=== PATIENT | female | born 1990 | race Caucasian/White ===

== ENCOUNTER 2016-09-26 13:10 | Outpatient (CLI) | payer MEDICAID ==
[~2016-09-26] VITALS: Ht 165.1 cm; Wt 82.0 kg
[~2016-09-26 13:10] MED LIST: CALC600T5 PO; PREN1TAB49
[2016-09-26 13:24] VITALS: BP 114/77; PULSE 89; RESP 20; Ht 165.1 cm; Wt 82.0 kg
[2016-09-26 13:48] LABS: ADD UMIC YES; URINE BILIRUBIN (Dip) NEGATIVE (NEGATIVE); URINE BLOOD (Dip) NEGATIVE (NEGATIVE); URINE COLOR LT. YELLOW (YELLOW); URINE GLUCOSE (Dip) NEGATIVE (NEGATIVE); URINE KETONES (Dip) NEGATIVE (NEGATIVE); URINE LEUKOCYTE ESTERASE (Dip) 1+ (NEGATIVE); URINE NITRITE (Dip) NEGATIVE (NEGATIVE); URINE TOTAL PROTEIN (Dip) NEGATIVE (NEGATIVE); URINE UROBILINOGEN (Dip) 0.2 E.U./dL (0.1-1.0)
--- NOTE | 2016-09-26 13:59 | RADRPT ---
PROCEDURE: OB ultrasound CLINICAL INDICATION: labor TECHNIQUE: Multiple transverse and longitudinal OB images of the pelvis were obtained. The images were reviewed on a high-resolution PACS workstation. COMPARISON: None FINDINGS: A single live intrauterine is seen. The presentation is vertex. The placenta is grade II and posterior in location. No evidence of placenta abruption or previa is seen. The heart rate is 132 beats per minute. The amniotic fluid index is 18.1 cm. The cervix is closed and the cervix length is 3 cm. movement 2 tone 2 breathing 2 Amniotic fluid 2 IMPRESSION: Biophysical profile of 03/30. RPTAT: HPNM Physician Mike Date Time Electronically viewed and signed by Physician Mike on 09/26/2016 13:58 /
[2016-09-26 14:24] LABS: BACTERIA,URINE FEW; URINE RBCS 0-2 /HPF (0)
[2016-09-26] MEDS ORDERED: TERBUTALINE 1 MG/ML INJ SC ONE (14:30)
[2016-09-26] MEDS ORDERED: CEFTRIAXONE 2 GM/50 ML (PMX) 50 ML IVPB ONE (14:30)
[2016-09-26] MEDS ORDERED: LACTATED RINGER'S 1,000 ML IV SCH (14:30)
--- NOTE | 2016-09-26 15:34 | TRIAGE ---
OB Triage Datetime Report Generated by CPN: 09/26/2016 15:34 Datetime: 09/26/2016 15:30 Maternal Assessment Level of Consciousness: Fully Conscious DTR's/Clonus: DTRs 2+ Headache: Denies Blurred Vision: No RUQ Epigastric Pain: Denies Facial Edema: None Labor Evaluation Frequency: PT DENIES Pattern: Normal: <= 5 Contractions in 10 Minutes Resting Tone [place]: Relaxed Heart Rate FHR Baseline Rate: 135 Monitor Mode: External US FHR Baseline Changes: No Baseline Change Variability: Moderate 6-25 bpm Accelerations: 15X15 Decelerations: None Category: Category I Pain Assessment Pain Scale: 0 Pain Presence: None/Denies Pain Goal: 3 Vaginal Exam Membrane Status: Intact Datetime: 09/26/2016 14:51 Labor Evaluation Frequency: 6-8 Monitor Mode: External Duration (sec)2399: 50 Quality: Moderate Pattern: Normal: <= 5 Contractions in 10 Minutes Resting Tone [place]: Relaxed Heart Rate FHR Baseline Rate: 135 Monitor Mode: External US FHR Baseline Changes: No Baseline Change Variability: Moderate 6-25 bpm Accelerations: 15X15 Decelerations: None Category: Category I Pain Assessment Pain Scale: 2 Pain Presence: Intermittent Pain Type: Pressure Pain Location: Abdomen Pain Goal: 3 Datetime: 09/26/2016 14:30 Maternal Assessment Level of Consciousness: Fully Conscious DTR's/Clonus: DTRs 2+ Headache: Denies Blurred Vision: No Nausea/Vomiting: Denies RUQ Epigastric Pain: Denies Facial Edema: None Labor Evaluation Frequency: 2-12 Monitor Mode: External Duration (sec)2399: 40-50 Quality: Mild Pattern: Normal: <= 5 Contractions in 10 Minutes Resting Tone [place]: Relaxed Heart Rate FHR Baseline Rate: 150 Monitor Mode: External US FHR Baseline Changes: No Baseline Change Variability: Moderate 6-25 bpm Accelerations: 15X15 Decelerations: None Category: Category I Pain Assessment Pain Scale: 3 Pain Presence: Intermittent Pain Type: Pressure Pain Location: Abdomen Pain Goal: 3 Vaginal Exam Membrane Status: Intact Datetime: 09/26/2016 13:27 Time of Arrival: 09/26/2016 13:05 EGA: 33.6 Arrived By: Ambulatory Arrived From: Home Chief Complaint: RIGHT LOWER ABD PRESSURE AND DECREASED MOVEMENT Movement: Decreased Contractions: Irregular Rupture of Membranes: Denies Vaginal Bleeding: None Vaginal Discharge: Denies Recent Sexual Intercouse: Denies Abdominal Trauma: Not Applicable Patient Complaints: Contractions; Other Time Provider Notified: 09/26/2016 13:15 Provider Notified: DR JONES Initial Plan: EFM,CALL DR JONES Datetime: 09/26/2016 13:26 Maternal Assessment Level of Consciousness: Fully Conscious DTR's/Clonus: DTRs 2+; No Clonus Headache: Denies Blurred Vision: No Respiratory Effort: Unlabored; Regular Rhythm; Equal Expansion Breath Sounds, Left: Clear and Equal Breath Sounds, Right: Clear and Equal Nausea/Vomiting: Denies RUQ Epigastric Pain: Denies Facial Edema: None Temperature Route: Axillary Fall Risk Assessment History of Falling: (0) No Secondary Diagnosis: (0) No Ambulatory Aid: (0) Bedrest/Nurse Assist IV Therapy: (0) No Gait: (0) Normal/Bedrest/Immobile Mental Status: (0) Oriented to Own Ability Fall Score: 0 Fall Risk Score Definition: No Risk: No action required Datetime: 09/26/2016 13:15 Maternal Assessment Level of Consciousness: Fully Conscious DTR's/Clonus: DTRs 2+ Headache: Denies Blurred Vision: No Nausea/Vomiting: Denies RUQ Epigastric Pain: Denies Facial Edema: None Labor Evaluation Frequency: IRREG Monitor Mode: External Duration (sec)2399: 50 Quality: Mild Pattern: Normal: <= 5 Contractions in 10 Minutes Resting Tone [place]: Relaxed Heart Rate FHR Baseline Rate: 145 Monitor Mode: External US FHR Baseline Changes: No Baseline Change Variability: Moderate 6-25 bpm Accelerations: 15X15 Decelerations: None Category: Category I Pain Assessment Pain Scale: 5 Pain Presence: Intermittent Pain Type: Pressure Pain Location: Abdomen Pain Goal: 4 Vaginal Exam Membrane Status: Intact
== END 2016-09-26 15:45 | disposition home or self-care (01) ==
LOC: L-D 13:10 → OBT 13:10
PROVIDERS: ATTEND Obstetrics & Gynecology
DX: O60.03 Preterm labor without delivery, third trimester (principal); Z3A.33 33 weeks gestation of pregnancy
CPT/HCPCS: 36415; 76817; 76818; 81001; 96365; 96372; J0696; J3105; J7120; Z7500; 81003; G0463

== ENCOUNTER 2016-10-30 08:38 | Outpatient (CLI) | END 2016-10-30 11:35 | disposition home or self-care (01) | DX: O36.8130 Decreased fetal movements, third trimester, not applicable or unspecified (principal); O14.93 Unspecified pre-eclampsia, third trimester; Z3A.38 38 weeks gestation of pregnancy | CPT/HCPCS: 36415; 76815; 76818; 80053; 81001; 84560; 85025; Z7500 ==

== ENCOUNTER 2016-11-01 11:28 | Inpatient (IN) | payer OTHER ==
[~2016-11-01] VITALS: Ht 165.1 cm; Wt 87.0 kg
[2016-11-01 11:31] VITALS: Ht 165.1 cm; Wt 87.0 kg
[2016-11-01 11:52] VITALS: BP 139/72; PULSE 77; RESP 18
--- NOTE | 2016-11-01 12:43 | RADRPT ---
PROCEDURE: OB ultrasound for Biophysical Profile. CLINICAL INDICATION: induced hypertension. TECHNIQUE: Multiple sonographic images of the gravid uterus were obtained. COMPARISON: 10/30/2016. FINDINGS: There is a single live intrauterine in cephalic presentation with heart motion of 12 2 beats per minute. SYMONE is 24.78 cm, which is within normal limits. Biophysical profile is as foll ows: Movement: 2 Tone:2 Breathin Fluid:2 IMPRESSION: Normal biophysical profile. RPTAT: QQ .Josephine Myers MD, MD Date Time Electronically viewed and signed by .Josephine Myers MD, on 11/01/2016 12:42 .T/
[2016-11-01] MEDS ORDERED: LIDOCAINE 1% (MPF) 30 ML INJ INJ PRN (14:00)
[2016-11-01] MEDS ORDERED: OXYTOCIN 30 UNITS/LR 500 ML IV SCH ×2 (14:00)
[2016-11-01] MEDS ORDERED: OXYTOCIN 30 UNITS/LR 500 ML IV PRN (14:00)
[2016-11-01] MEDS ORDERED: METHYLERGONOVINE 0.2 MG INJ IM PRN (14:00)
[2016-11-01] MEDS ORDERED: MISOPROSTOL 200 MCG TAB PR PRN (14:00)
[2016-11-01] MEDS ORDERED: CARBOPROST 250 MCG INJ IM PRN (14:00)
[2016-11-01] MEDS ORDERED: BUTORPHANOL 2 MG INJ IV PRN (14:00)
[2016-11-01] MEDS ORDERED: DINOPROSTONE 10 MG VAG SUPP VAG ONE (14:00)
[2016-11-01] MEDS ORDERED: LACTATED RINGER'S 1,000 ML IV PRN (14:00)
[2016-11-01] MEDS ORDERED: IBUPROFEN 600 MG TAB PO PRN (14:00)
--- NOTE | 2016-11-01 14:01 | TRIAGE ---
OB Triage Datetime Report Generated by CPN: 11/01/2016 14:01 Datetime: 11/01/2016 13:50 Labor Evaluation Frequency: 2-6 Monitor Mode: External Duration (sec)2399: 40-80 Quality: Mild Pattern: Normal: <= 5 Contractions in 10 Minutes Resting Tone [place]: Relaxed FHR Baseline Changes: No Baseline Change Variability: Moderate 6-25 bpm Comments: UNABLE TO ASSESS Datetime: 11/01/2016 13:00 Labor Evaluation Frequency: 2-5 Monitor Mode: External Duration (sec)2399: 40-70 Quality: Mild Pattern: Normal: <= 5 Contractions in 10 Minutes Resting Tone [place]: Relaxed FHR Baseline Changes: No Baseline Change Comments: UNABLE TO ASSESS Datetime: 11/01/2016 12:37 Vaginal Exam Dilatation (cms): 0.5 Effacement (%): 0 Station: -3 Exam By: CKUNIYOSHI Vaginal Bleeding: None Cervix, Consistency: Soft Cervix, Position: Posterior Lie 'A': Unable to Assess Datetime: 11/01/2016 12:35 Comments: BEDSIDE US COMPLETED Datetime: 11/01/2016 12:07 Labor Evaluation Frequency: 2-5 Monitor Mode: External Duration (sec)2399: 40-70 Quality: Mild Pattern: Normal: <= 5 Contractions in 10 Minutes Resting Tone [place]: Relaxed Heart Rate FHR Baseline Rate: 125 Monitor Mode: External US FHR Baseline Changes: No Baseline Change Variability: Moderate 6-25 bpm Accelerations: 15X15 Datetime: 11/01/2016 11:56 Time of Arrival: 11/01/2016 11:25 EGA: 39.0 Arrived By: Ambulatory Arrived From: Home Chief Complaint: ORDERS TO RETURN FOR FOLLOW UP NST/BPP (PT SEEN ON 10/30/16, TO R/O [facility]) Movement: Present Contractions: Occasional Rupture of Membranes: Denies Vaginal Bleeding: None Vaginal Discharge: Present Recent Sexual Intercouse: Denies Abdominal Trauma: Not Applicable Patient Complaints: Contractions Additional Patient Complaints: CONTRACTIONS, MUCUS DISCHARGE FROM 10/30, CONSTANT BURNING SENSATION IN LOWER ABDOMEN Time Provider Notified: 11/01/2016 12:58 Provider Notified: [facility] Initial Plan: EFM x2, BPP, SVE Datetime: 11/01/2016 11:38 Stage of : OB Triage Assessment Type: Triage Maternal Assessment Level of Consciousness: Fully Conscious Headache: Denies Blurred Vision: No Respiratory Effort: Unlabored; Regular Rhythm; Equal Expansion Breath Sounds, Left: Clear and Equal Breath Sounds, Right: Clear and Equal Nausea/Vomiting: Denies RUQ Epigastric Pain: Denies Lower Extremities Edema: Bilateral Lower Extremities Degree: 1+ Upper Extremities Edema: Bilateral Upper Extremities Degree: 1+ Facial Edema: 1+ Temperature Route: Oral Fall Risk Assessment History of Falling: (0) No Secondary Diagnosis: (0) No Ambulatory Aid: (0) Bedrest/Nurse Assist IV Therapy: (0) No Gait: (0) Normal/Bedrest/Immobile Mental Status: (0) Oriented to Own Ability Fall Score: 0 Fall Risk Score Definition: No Risk: No action required Pain Assessment Pain Scale: 2 Pain Presence: Intermittent Pain Type: Burning; Contraction Pain Location: Abdomen Datetime: 10/30/2016 11:28 Arrived By: Ambulatory Arrived From: Home Movement: Present Contractions: Regular Rupture of Membranes: Denies Recent Sexual Intercouse: Yes Abdominal Trauma: Not Applicable Datetime: 10/30/2016 08:50 Fall Score: 0 Fall Risk Score Definition: No Risk: No action required Datetime: 10/30/2016 08:41 EGA: 38.5 Datetime: 09/26/2016 13:27 EGA: 33.6 Datetime: 09/26/2016 13:26 Fall Score: 0 Fall Risk Score Definition: No Risk: No action required
[2016-11-01 14:17] LABS: ADD SCAN DIFF NO
[2016-11-01 14:20] LABS: ADD UMIC NO; BASOPHILS % 0.2 % (0.0-2.0); EOSINOPHILS % 0.5 % (0.0-7.0); HEMATOCRIT 31.3 % (37.0-47.0); HEMOGLOBIN 10.6 g/dl (12.0-16.0); LYMPHOCYTES # 1.7 10^3/ul (0.8-2.9); LYMPHOCYTES % 25.5 % (15.0-51.0); MEAN CORPUSCULAR HEMOGLOBIN 30.8 pg (29.0-33.0); MEAN CORPUSCULAR HGB CONC 33.9 g/dl (32.0-37.0); MEAN PLATELET VOLUME 12.6 fl (7.4-10.4); MONOCYTE # 0.5 10^3/ul (0.3-0.9); MONOCYTES % 6.9 % (0.0-11.0); NEUTROPHIL # 4.3 10^3/ul (1.6-7.5); NEUTROPHILS % 66.4 % (39.0-77.0); PLATELET COUNT 144 10^3/UL (140-415); RED BLOOD COUNT 3.44 10^6/ul (4.20-5.40); URINE BILIRUBIN (Dip) NEGATIVE (NEGATIVE); URINE BLOOD (Dip) NEGATIVE (NEGATIVE); URINE COLOR LT. YELLOW (YELLOW); URINE GLUCOSE (Dip) NEGATIVE (NEGATIVE); URINE KETONES (Dip) NEGATIVE (NEGATIVE); URINE LEUKOCYTE ESTERASE (Dip) NEGATIVE (NEGATIVE); URINE NITRITE (Dip) NEGATIVE (NEGATIVE); URINE TOTAL PROTEIN (Dip) NEGATIVE (NEGATIVE); URINE UROBILINOGEN (Dip) 0.2 E.U./dL (0.1-1.0); WHITE BLOOD COUNT 6.5 10^3/ul (4.8-10.8)
[2016-11-01 14:29] LABS: INR 0.87; PROTIME 11.8 Sec (12.2-14.2); PT RATIO 0.9
[2016-11-01] MEDS: LACTATED RINGER'S 1,000 ML IV SCH ×2 (14:29→19:39)
[2016-11-01 14:30] LABS: PARTIAL THROMBOPLASTIN TIME 28.6 Sec (25.0-35.0)
[2016-11-01 14:32] LABS: ALBUMIN 3.2 g/dl (3.3-4.9); POTASSIUM 3.8 mmol/L (3.5-5.1)
[2016-11-01 14:34] LABS: BILIRUBIN,INDIRECT 0.2 mg/dl (0-1.1); BILIRUBIN,TOTAL 0.2 mg/dl (0.2-1.3); CREATININE 0.57 mg/dl (0.44-1.00)
[2016-11-01 14:35] LABS: ALBUMIN/GLOBULIN RATIO 0.94; CALCIUM 8.7 mg/dl (8.4-10.2); TOTAL PROTEIN 6.6 g/dl (6.1-8.1)
[2016-11-01] MEDS ORDERED: FENTAnyl 2MCG/ML-ROPIV 0.2% 100 ML ONE (23:46)
[2016-11-02] MEDS ORDERED: OXYTOCIN 30 UNITS/LR 500 ML IV SCH ×2 (03:00→17:26)
[2016-11-02] MEDS: LACTATED RINGER'S 1,000 ML IV SCH ×4 (03:14→21:54)
--- NOTE | 2016-11-02 07:01 | HP ---
DATE OF ADMISSION: 11/01/2016 HISTORY: Patient is a 26-year-old, G4, P3, who presents at 39 weeks complaining of swelling and ian rine contractions. , no headaches. PAST MEDICAL HISTORY: None. PAST SURGICAL HISTORY: None. PHYSICAL EXAMINATION: VITAL SIGNS: blood pressure is in the high 130s to 140s. ____ ABDOMEN: Soft, nontender, no rebound or guarding. EXTREMITIES: There is +2 pitting edema up to the knees. Category 1 tracing. Patient with irregular uterine contractions. ASSESSMENT: Intrauterine at 39 weeks. Patient with some uterine contractions and elevated blood pressures and edema. Patient is going to be admitted for induction of labor for elev ated blood pressures. Labs will be obtained, and further management based on the examination and th e labs. Dictated By: ELO LEARY MD /NTS Conf#: [id number] DID#: [id number]
[2016-11-02] MEDS ORDERED: FENTAnyl 2MCG/ML-ROPIV 0.2% 100 ML ONE (08:58)
[2016-11-02] MEDS ORDERED: NALOXONE (0.4 MG/ML) INJ IV PRN ×2 (09:00→13:00)
[2016-11-02] MEDS ORDERED: FENTAnyl 2MCG/ML-ROPIV 0.2% 100 ML BAG EPI SCH (09:04)
[2016-11-02] MEDS ORDERED: CEFAZOLIN 2 GM/50 ML (PMX) 50 ML IVPB SCH (09:30)
[2016-11-02] MEDS ORDERED: CEFAZOLIN 2 GM/50 ML (PMX) 50 ML IVPB ONE (09:38)
[2016-11-02] MEDS ORDERED: LACTATED RINGER'S 1,000 ML IV ONE (09:43)
[2016-11-02] MEDS ORDERED: METOCLOPRAMIDE 10 MG INJ IV ONE (10:00)
[2016-11-02] MEDS ORDERED: CITRIC ACID/NA CITRATE 30 ML CUP PO ONE (10:00)
[2016-11-02] MEDS ORDERED: FAMOTIDINE 20 MG INJ IV ONE (10:00)
[2016-11-02] MEDS ORDERED: morphine SULFATE/PF (10 MG/10 ML) INJ ONE (10:13)
[2016-11-02] MEDS ORDERED: LIDOCAINE 2%/EPI 30 ML INJ ONE (10:13)
[2016-11-02] MEDS ORDERED: FENTAnyl 50 MCG/ML VIAL ONE (10:13)
[2016-11-02] MEDS ORDERED: NA BICARBONATE 8.4% 50 ML SYG ONE (10:13)
[2016-11-02] MEDS ORDERED: HYDROmorphONE (0.2 MG/ML) 10ML SYG IV PRN (10:30)
[2016-11-02] MEDS ORDERED: PROCHLORPERAZINE 10 MG INJ IV PRN ×2 (10:30→13:00)
[2016-11-02] MEDS ORDERED: MEPERIDINE 25 MG INJ IV PRN (10:30)
[2016-11-02] MEDS ORDERED: DIPHENHYDRAMINE 50 MG INJ IV PRN ×2 (10:30→13:00)
[2016-11-02] MEDS ORDERED: FENTAnyl 50 MCG/ML VIAL IV PRN (10:30)
[2016-11-02] MEDS ORDERED: KETOROLAC 30 MG INJ IV PRN ×2 (10:30→13:00)
[2016-11-02] MEDS ORDERED: ONDANSETRON 4 MG INJ IV PRN ×2 (10:30→13:00)
[2016-11-02] MEDS ORDERED: ONDANSETRON 4 MG INJ ONE (10:41)
[2016-11-02] MEDS ORDERED: OXYTOCIN 30 UNITS/LR 1,000 ML IV ONE (10:44)
--- NOTE | 2016-11-02 11:47 | OPR ---
DATE OF OPERATION: 11/02/2016 PREOPERATIVE DIAGNOSES: 1. Intrauterine at 39 weeks. 2. Nonreassuring heart tracing, category 3. POSTOPERATIVE DIAGNOSES: 1. Intrauterine at 39 weeks. 2. Nonreassuring heart tracing, category 3. OPERATION PERFORMED: Primary transverse low cervical section. SURGEON: Paty Jones MD BULK CLERK: Ace Falk MD ANESTHESIA: Spinal. ANESTHESIOLOGIST: Dr. Ford. FINDINGS: Live baby boy, 8 and 9. ESTIMATED BLOOD LOSS: 600 to 700 mL. DETAILS OF THE PROCEDURE: Under satisfactory spinal anesthesia, the patient was prepped and draped and placed in supine position, tilted to the left. Pfannenstiel incision was made, carried through the subcutaneous tissue. Bleeders brought under control with electrocautery. Fascia incised to the length of the incision. Rectus muscle divided in midline. Peritoneum exposed, entered through a t ransverse incision. Exploration of abdomen, gravid uterus at term, normal appearing tubes and ovari es, and evidence of labor. Bladder flap was developed. Transverse incision was made in the lower s egment of the uterus. Amniotic sac ruptured. Clear amniotic fluid noted. Live baby boy was delive red from LOT position. Nasal oropharyngeal suction was performed. Cord was clamped after stopped p ulsation. Baby handed to the team for immediate attention. The patient received 20 units of Pitocin. Placenta delivered manually intact. Uterine cavity cleaned with wet sponge and drainage established . Uterus closed in 2 layers using Monocryl #1 in continuous fashion. Peritoneal cavity irrigated w ith warm saline. Sponge, needle and instrument reported to be correct. Abdominal peritoneum closed with 2-0 chromic catgut continuously. Rectus muscle approximated with 3 interrupted 2-0 chromic ca tgut. Fascia closed with #1 PDS in a continuous fashion. Subcutaneous tissue approximated with 2-0 chromic catgut. Skin closed with gilson. Estimated blood loss 700 mL. Urine bag contained 200 m L of clear urine. The patient tolerated procedure well, transferred to recovery room in good condit ion. Dictated By: PATY JONES MD HF/NTS Conf#: [id number] DID#: [id number]
[2016-11-02] MEDS ORDERED: ZOLPIDEM 5 MG TAB PO PRN (13:00)
[2016-11-02] MEDS ORDERED: HYDROmorphONE 1 MG/ML SYG IV PRN ×2 (13:00)
[2016-11-02 13:45] VITALS: BP 131/76; PULSE 77; RESP 72
[2016-11-02 16:15] VITALS: BP 125/73; PULSE 90; RESP 18
[2016-11-02] MEDS ORDERED: OXYTOCIN 30 UNITS/LR 500 ML IV PRN (17:30)
[2016-11-02] MEDS ORDERED: MISOPROSTOL 200 MCG TAB PR PRN (17:30)
[2016-11-02] MEDS ORDERED: CEFAZOLIN 1 GM/50 ML (PMX) 50 ML IVPB SCH (17:30)
[2016-11-02] MEDS ORDERED: METHYLERGONOVINE 0.2 MG INJ IM PRN (17:30)
[2016-11-02] MEDS ORDERED: CARBOPROST 250 MCG INJ IM PRN (17:30)
[2016-11-02 19:45] VITALS: BP 132/85; PULSE 85; RESP 18
[2016-11-03] VITALS: BP 109/61; PULSE 84; RESP 18
[2016-11-03] MEDS: LACTATED RINGER'S 1,000 ML IV SCH ×2 (02:54→05:54)
[2016-11-03 04:00] VITALS: BP 109/70; PULSE 80; RESP 18
[2016-11-03 07:21] LABS: ADD SCAN DIFF NO
[2016-11-03 07:36] LABS: ABNORMAL IP MESSAGE 1; BASOPHILS % 0.1 % (0.0-2.0); EOSINOPHILS % 0.1 % (0.0-7.0); HEMATOCRIT 19.2 % (37.0-47.0); LYMPHOCYTES # 1.6 10^3/ul (0.8-2.9); LYMPHOCYTES % 20.4 % (15.0-51.0); MEAN CORPUSCULAR HEMOGLOBIN 30.7 pg (29.0-33.0); MEAN CORPUSCULAR HGB CONC 33.9 g/dl (32.0-37.0); MEAN CORPUSCULAR VOLUME 90.6 fl (82.0-101.0); MEAN PLATELET VOLUME 12.1 fl (7.4-10.4); MONOCYTE # 0.7 10^3/ul (0.3-0.9); MONOCYTES % 8.6 % (0.0-11.0); NEUTROPHIL # 5.4 10^3/ul (1.6-7.5); PLATELET COUNT 117 10^3/UL (140-415); RED BLOOD COUNT 2.12 10^6/ul (4.20-5.40); RED CELL DISTRIBUTION WIDTH 13.1 % (11.5-14.5); WHITE BLOOD COUNT 7.7 10^3/ul (4.8-10.8)
[2016-11-03 07:41] LABS: HEMOGLOBIN 6.5 g/dl (12.0-16.0)
[2016-11-03 08:00] VITALS: BP 107/57; PULSE 89; RESP 18
[2016-11-03] MEDS ORDERED: OXYCODONE/ACETAMINOPHEN (5/325) TAB PO PRN (12:57)
[2016-11-03] MEDS: IBUPROFEN 600 MG TAB PO SCH ×2 (13:04→18:19)
[2016-11-03 16:30] VITALS: BP 124/67; PULSE 93; RESP 20
--- NOTE | 2016-11-03 17:25 | PN ---
Date/Time of Note Date/Time of Note DATE: 11/03/16 TIME: 17:21 OB Subjective Subjective Subjective Post day 1 Afebrile, vital signs stable, abdomen soft incision dry bowel sounds present lochia moderate, ambulating no dizziness or lightheadedness with the hemoglobin is 6.5 hematocrit of 19.2 blood transfusion discussed with the patient and risks and benefits explained patient agreed to receive 2 units of packed cells. Laboratory Tests Test 11/03/16 07:08 Basophils # 0.010^3/ul Basophils % 0.1% Eosinophils # 0.010^3/ul Eosinophils % 0.1% Hematocrit 19.2% Hemoglobin 6.5g/dl Lymphocytes # 1.610^3/ul Lymphocytes % 20.4% Mean Corpuscular Hemoglobin 30.7pg Mean Corpuscular Hemoglobin Concent 33.9g/dl Mean Corpuscular Volume 90.6fl Mean Platelet Volume 12.1fl Monocytes # 0.710^3/ul Monocytes % 8.6% Neutrophils # 5.410^3/ul Neutrophils % 70.0% Nucleated Red Blood Cells # 0.010^3/ul Nucleated Red Blood Cells % 0.0/100WBC Platelet Count 36856^3/UL Red Blood Count 2.1210^6/ul Red Cell Distribution Width 13.1% White Blood Count 7.710^3/ul Current Medications Medications (Trade) Dose Ordered Sig/Aura Route PRN Reason Start Time Stop Time Status Last Admin Dose Admin Lactated Ringer's (Lr) 1,000 ml @ 125 mls/hr Q8H IV 11/01/16 13:54 11/03/16 09:49 DC 11/02/16 03:14 Dinoprostone (Cervidil Vaginal Supp) 10 mg ONCE ONCE VAG 11/01/16 14:00 11/01/16 14:13 DC 11/01/16 14:59 Butorphanol Tartrate (Stadol) 2 mg Q2H PRN IV PAIN 11/01/16 14:00 Lidocaine 30 ml 30 ml ONCE PRN INJ EPISIOTOMY/TEARING 11/01/16 14:00 11/02/16 17:32 DC Oxytocin/Lactated Ringer's 500 ml @ 125 mls/hr ONCE -MAY REPEAT X1 IV 11/01/16 14:00 11/02/16 17:32 DC Oxytocin/Lactated Ringer's 500 ml @ 125 mls/hr ONCE IV 11/01/16 14:00 11/02/16 17:32 DC Ibuprofen 600 mg 600 mg ONCE PRN PO Mild Pain (Pain Score 1-3) 11/01/16 14:00 11/02/16 17:32 DC Lactated Ringer's 1,000 ml @ 2,000 mls/hr Q30M PRN IV PRE-EPIDURAL BOLUS 11/01/16 14:00 11/02/16 17:32 DC 11/02/16 00:02 Oxytocin/Lactated Ringer's 500 ml @ 0 mls/hr ONCE PRN IV For Hemorrhage Management 11/01/16 14:00 Methylergonovine Maleate (Methergine) 0.2 mg ONCE PRN IM VAGINAL BLEEDING 11/01/16 14:00 11/02/16 18:09 DC Carboprost Tromethamine (Hemabate) 250 mcg ONCE PRN IM VAGINAL BLEEDING 11/01/16 14:00 11/03/16 12:49 DC Misoprostol 1000 mcg 1,000 mcg ONCE PRN [place] VAGINAL BLEEDING 11/01/16 14:00 Fentanyl/ Ropivacaine 100 ml @ ud STK-MED ONCE .ROUTE 11/01/16 23:46 11/01/16 23:47 DC Oxytocin/Lactated Ringer's 500 ml @ 0 mls/hr TITRATE IV 11/02/16 03:00 11/02/16 17:32 DC 11/02/16 03:14 Naloxone HCl (Narcan) 0.2 mg Q2M PRN IV FOR RESP RATE 8 OR LESS 11/02/16 09:00 Fentanyl/ Ropivacaine 100 ml 100 ml EPIDURAL (PCEA) EPI 11/02/16 09:04 11/02/16 17:32 DC 11/02/16 09:06 Fentanyl/ Ropivacaine 100 ml @ ud STK-MED ONCE .ROUTE 11/02/16 08:58 11/02/16 08:59 DC Cefazolin Sodium/ Dextrose 50 ml @ 100 mls/hr ONCE IVPB 11/02/16 09:30 11/02/16 17:32 DC Cefazolin Sodium/ Dextrose 50 ml @ ud STK-MED ONCE IVPB 11/02/16 09:38 11/02/16 09:39 DC Lactated Ringer's (Lr) 1,000 ml @ 1,000 mls/hr Q1H ONCE IV 11/02/16 09:43 11/02/16 18:09 DC 11/02/16 11:28 Citric Acid/ Sodium Citrate (Bicitra) 30 ml pre-procedure ONCE PO 11/02/16 10:00 11/02/16 18:09 DC Famotidine (Pepcid Iv) 20 mg pre-procedure ONCE IV 11/02/16 10:00 11/02/16 18:09 DC Metoclopramide HCl (Reglan) 10 mg ONCE ONCE IV 11/02/16 10:00 11/02/16 10:01 DC Sodium Bicarbonate (Na Bicarb 8.4% Syg) 50 ml STK-MED ONCE .ROUTE 11/02/16 10:13 11/02/16 10:14 DC Lidocaine/ Epinephrine (Xylocaine 2%/ Epi) 30 ml STK-MED ONCE .ROUTE 11/02/16 10:13 11/02/16 10:14 DC Fentanyl (Sublimaze) 100 mcg STK-MED ONCE .ROUTE 11/02/16 10:13 11/02/16 10:14 DC Morphine Sulfate (Duramorph) 10 mg STK-MED ONCE .ROUTE 11/02/16 10:13 11/02/16 10:14 DC Hydromorphone HCl (Dilaudid (Rec)) 0.4 mg PACU ORDER PRN IV PAIN 11/02/16 10:30 11/02/16 18:00 DC Fentanyl (Sublimaze) 25 mcg PACU ORDER PRN IV PAIN 11/02/16 10:30 11/02/16 17:33 DC Ketorolac Tromethamine (Toradol) 30 mg PACU ORDER PRN IV PAIN 11/02/16 10:30 11/02/16 18:00 DC 11/02/16 11:23 Ondansetron HCl (Zofran Inj) 4 mg PACU ORDER PRN IV NAUSEA AND/OR VOMITING 11/02/16 10:30 11/02/16 18:00 DC Prochlorperazine (Compazine Inj) 5 mg PACU ORDER PRN IV NAUSEA AND/OR VOMITING 11/02/16 10:30 11/02/16 18:00 DC Meperidine HCl (Demerol) 25 mg PACU ORDER PRN IV POST-OP RIGORS 11/02/16 10:30 11/02/16 18:00 DC Diphenhydramine HCl (Benadryl) 25 mg PACU ORDER PRN IV PRURITUS 11/02/16 10:30 11/02/16 18:00 DC Ondansetron HCl 4 mg 4 mg STK-MED ONCE .ROUTE 11/02/16 10:41 11/02/16 10:42 DC Oxytocin/Lactated Ringer's 1,000 ml @ ud STK-MED ONCE IV 11/02/16 10:44 11/02/16 10:45 DC Naloxone HCl (Narcan) 0.1 mg Q2M PRN IV FOR RESP RATE 8 OR LESS 11/02/16 13:00 11/03/16 10:45 DC Ketorolac Tromethamine (Toradol) 30 mg Q6H PRN IV PAIN 11/02/16 13:00 11/03/16 10:45 DC 11/03/16 04:48 Hydromorphone HCl (Dilaudid) 0.2 mg Q3H PRN IV PAIN LEVEL 1-5 11/02/16 13:00 11/03/16 10:45 DC Hydromorphone HCl (Dilaudid) 0.4 mg Q3H PRN IV PAIN LEVEL 6-10 11/02/16 13:00 11/03/16 10:45 DC Diphenhydramine HCl (Benadryl) 25 mg Q6H PRN IV ITCHING 11/02/16 13:00 11/03/16 10:45 DC Ondansetron HCl (Zofran Inj) 4 mg Q6H PRN IV NAUSEA AND/OR VOMITING 11/02/16 13:00 11/03/16 10:45 DC 11/02/16 15:36 Prochlorperazine (Compazine Inj) 10 mg ONCE PRN IV NAUSEA AND/OR VOMITING 11/02/16 13:00 11/03/16 10:45 DC Zolpidem Tartrate (Ambien) 5 mg HS MAY REPEAT X 1 PRN PO INSOMNIA 11/02/16 13:00 11/03/16 10:45 DC Miscellaneous Information Duramorph: 3 mg Epidu... GIVEN XX 11/02/16 13:00 11/02/16 13:00 DC Lactated Ringer's 1,000 ml @ 125 mls/hr Q8H IV 11/02/16 17:26 11/03/16 09:49 DC 11/03/16 02:54 Oxytocin/Lactated Ringer's 500 ml @ 0 mls/hr ONCE PRN IV For Hemorrhage Management 11/02/16 17:30 Methylergonovine Maleate (Methergine) 0.2 mg ONCE PRN IM VAGINAL BLEEDING 11/02/16 17:30 Carboprost Tromethamine (Hemabate) 250 mcg ONCE PRN IM VAGINAL BLEEDING 11/02/16 17:30 Misoprostol 1000 mcg 1,000 mcg ONCE PRN [place] VAGINAL BLEEDING 11/02/16 17:30 Cefazolin Sodium 50 ml @ 100 mls/hr ONCE IVPB 11/02/16 17:30 11/02/16 17:59 DC 11/02/16 18:39 Oxytocin/Lactated Ringer's 500 ml @ 125 mls/hr Q4H IV 11/02/16 17:26 11/02/16 18:09 DC Ibuprofen (Motrin) 600 mg Q6 PO 11/03/16 13:00 11/03/16 13:04 Oxycodone/ Acetaminophen (Percocet (5/ 325)) 1 tab Q3H PRN PO PAIN 11/03/16 12:57 Simethicone (Mylicon) 160 mg Q6H PRN PO DISTENSION/GAS/BLOATING 11/03/16 12:57 11/03/16 13:05 PATY JONES MD Nov 03, 2016 17:25
[2016-11-03 17:38] LABS: HEMATOCRIT 19.9 % (37.0-47.0)
[2016-11-03 17:44] LABS: HEMOGLOBIN 6.8 g/dl (12.0-16.0)
[2016-11-03 19:45] VITALS: BP 137/80; PULSE 94; RESP 18
[2016-11-04 03:45] VITALS: BP 117/78; PULSE 73; RESP 18
[2016-11-04] MEDS: IBUPROFEN 600 MG TAB PO SCH ×4 (05:34→17:52)
[2016-11-04 07:45] VITALS: BP 108/78; PULSE 65; RESP 18
[2016-11-04 16:08] VITALS: BP 117/77; PULSE 81; RESP 18
[2016-11-04] MEDS ORDERED: NA PHOSPHATE/BIPHOS 133 ML ENEMA PR ONE (18:00)
[2016-11-04 19:45] VITALS: BP 125/65; PULSE 125; RESP 18
[2016-11-05] MEDS: IBUPROFEN 600 MG TAB PO SCH ×4 (00:03→18:01)
[2016-11-05 08:00] VITALS: BP 122/80; PULSE 62; RESP 19
--- NOTE | 2016-11-05 10:56 | DS ---
Date/Time of Note Date/Time of Note DATE: 11/05/16 TIME: 10:52 Obstetrical Discharge Record Final Diagnosis Final Diagnosis: Term delivered Section Section: Primary Complications Other (Nonreassuring heart tracing category 2 on 3) Rupture of Membranes: No Condition on Discharge Physical Assessment Last Vitals: 26 years old 4 para 2 underwent a primary due to nonreassuring heart tracing category 2 and 3 the outcome of the light baby boy Apgars 9 and 9 patient's postoperative course in the hospital uneventful on the third postoperative day incision inspected found free of inflammation and infection patient discharged with recommendation to be seen in the office in in 4 days to discontinue gilson received a prescription of Motrin 600 mg and Tylenol 3 for postoperative pain. Voiding: Yes Bowel Movement: Yes Fundus: Firm Calf Tenderness: No Patient Condition: Good PATY JONES MD Nov 05, 2016 10:56
--- NOTE | 2016-11-05 10:57 | PD.PPDC ---
[place] Discharge Instruction Condition Patient Condition: Good Diet Diet: Resume Regular Diet Activity/Restrictions Activity: Normal Activity May Shower Restrictions: No Exercising No Lifting No Driving No Sexual Activity Nothing in the Vagina No [place] No Tampons, douche Wound/Drain Care Instructions Wound/Drain Care Instructions: Remove Steri Strips in 1 week Follow-up Follow-up with Physician: 4, Day/Days Return to clinic for EPIDEMIOLOGY INTERNSHIP Instructions: Fever greater than 101 Chills Worsening abdominal pain Excessive Vaginal Bleeding More than 2 pads per hour Unable to tolerate diet OB Instructions: Breast Tenderness Blurried Vision Headache Surgical Instructions: Incisional Drainage Incisional Redness PATY JONES MD Nov 05, 2016 10:57
[2016-11-05 12:08] LABS: ADD SCAN DIFF NO
[2016-11-05 12:10] LABS: BASOPHILS % 0.3 % (0.0-2.0); EOSINOPHILS # 0.2 10^3/ul (0.0-0.5); EOSINOPHILS % 2.5 % (0.0-7.0); HEMATOCRIT 24.1 % (37.0-47.0); LYMPHOCYTES # 1.2 10^3/ul (0.8-2.9); LYMPHOCYTES % 20.8 % (15.0-51.0); MEAN CORPUSCULAR HGB CONC 33.2 g/dl (32.0-37.0); MEAN CORPUSCULAR VOLUME 93.4 fl (82.0-101.0); MONOCYTE # 0.4 10^3/ul (0.3-0.9); MONOCYTES % 7.4 % (0.0-11.0); NEUTROPHIL # 4.1 10^3/ul (1.6-7.5); NEUTROPHILS % 68.8 % (39.0-77.0); PLATELET COUNT 144 10^3/UL (140-415); RED BLOOD COUNT 2.58 10^6/ul (4.20-5.40); RED CELL DISTRIBUTION WIDTH 13.4 % (11.5-14.5)
[2016-11-05 15:10] VITALS: BP 109/76; PULSE 73; RESP 19
== END 2016-11-05 19:01 | disposition home or self-care (01) | DRG 766 ==
LOC: L-D 11:28 → OBT 11:28 → L-D 13:42 → OBT 13:42 → L-D 11-02 09:50 → PP1 11-02 13:50
PROVIDERS: ADMIT Obstetrics & Gynecology; ATTEND Obstetrics & Gynecology
PROC: 10D00Z1 Extraction of Products of Conception, Low, Open Approach (ICD-10-PCS; principal; 2016-11-02 10:00)
DX: O76 Abnormality in fetal heart rate and rhythm complicating labor and delivery (principal); Z37.0 Single live birth; Z3A.39 39 weeks gestation of pregnancy
CPT/HCPCS: 36430; 62319; 76818; 80053; 81003; 84560; 85014; 85018; 85025; 85610; 85730; 86592; 86850; 86900; 86901; 86920; 94760; 99464; G0463; J0690; J1885; J2210; J2274; J2405; J2590; J3010; J7120; P9016